=== PATIENT | female | born 1935 | race Caucasian/White ===

== ENCOUNTER 2017-01-14 11:52 | Inpatient (IN) | payer MEDICARE, OTHER ==
[~2017-01-14] VITALS: Ht 167.6 cm; Wt 104.3 kg
[~2017-01-14 11:52] MED LIST: ASPIRIN EC81 MG ORAL; CLOPIDOGREL75 MG ORAL; DIOVAN40 MG ORAL; FUROSEMIDE40 MG ORAL; JANUVIA100 MG ORAL; LEVOTHYROXINE88 MCG ORAL; METFORMIN HCL500 M1 ORAL; METOPROLOL TART25 MG ORAL
[2017-01-14 12:25] VITALS: BP 158/72
[2017-01-14 12:44] LABS: BASOPHILS % (AUTO) 0.8 % (0.0-2.0); LYMPHOCYTES % (AUTO) 16.4 % (20.0-45.0); MEAN CORPUSCULAR HEMOGLOBIN 31.1 PG (27.0-31.0); MEAN CORPUSCULAR HGB CONC 32.7 G/DL (32.0-36.0); MEAN CORPUSCULAR VOLUME 95 FL (80-99); MEAN PLATELET VOLUME 6.9 FL (6.5-10.1); MONOCYTES % (AUTO) 6.5 % (1.0-10.0); NEUTROPHILS % (AUTO) 74.2 % (45.0-75.0); PLATELET COUNT 207 K/UL (150-450); RED BLOOD COUNT 3.64 M/UL (4.20-5.40); RED CELL DISTRIBUTION WIDTH 12.5 % (11.6-14.8); WHITE BLOOD COUNT 10.4 K/UL (4.8-10.8)
--- NOTE | 2017-01-14 12:46 | Diagnostic Imaging Report ---
Indication: Chest pain Technique: One view of the chest Comparison: none Findings: Linear and of atelectasis or scarring are seen in the left midlung and right lung base. Lungs and pleural spaces are otherwise clear. The heart is borderline enlarged. The aorta is elongated tortuous and calcified Impression: No acute process
[2017-01-14 12:58] LABS: TROPONIN I < 0.30 ng/mL (<=0.30)
--- NOTE | 2017-01-14 13:00 | Diagnostic Imaging Report ---
Indication: DIZZY dizziness vertigo Technique: spiral acquisitions obtained through the brain. Angled axial and coronal 5 x 5 mm slices were reconstructed. No IV contrast utilized. Radiation dose was minimized using automated exposure control Total dose length product 1421 mGycm. CTDIvol(s) 70 mGy Comparison: none FINDINGS: No acute hemorrhage or edema. No mass effect or midline shift. There is age-related enlargement of the ventricles and extra axial CSF spaces. There is periventricular deep white matter ischemic change. There is an old lacunar infarct in the right external capsule region. Normal arenas-white differentiation. There is evidence of prior bilateral cataract surgery.. Visualized sinuses are unremarkable. Intact calvarium. IMPRESSION: Chronic and age-related changes. Negative for acute intracranial bleed or mass effect Old right basal ganglia lacunar infarct The CT scanner at [facility] is accredited by the [employer] and the scans are performed using protocols designed to limit radiation exposure to as low as reasonably achievable to attain images of sufficient resolution adequate for diagnostic evaluation
[2017-01-14 13:02] LABS: ALANINE AMINOTRANSFERASE 10 U/L (3-33); ALBUMIN/GLOBULIN RATIO 1.2 (1.0-2.7); ANION GAP 13 (5-15); ASPARTATE AMINO TRANSFERASE 14 U/L (5-40); CALCIUM 9.2 mg/dL (8.6-10.2); CARBON DIOXIDE 24 mEQ/L (20-30); CHLORIDE 105 mEQ/L (98-107); CREATININE 1.1 mg/dL (0.5-0.9); HEMOLYSIS 7; POTASSIUM 3.9 mEQ/L (3.4-4.9); SODIUM 142 mEQ/L (135-145); TOTAL PROTEIN 6.6 g/dL (6.6-8.7)
[2017-01-14 13:13] LABS: CKMB 2.2 ng/mL (< 3.8)
[2017-01-14 13:22] VITALS: BP 136/60
--- NOTE | 2017-01-14 13:54 | Emergency Room Report ---
History of Present Illness General Chief Complaint: Chest Pain Source: Patient, EMS Present Illness HPI 81-year-old female presents ED complaining of chest pain. Per EMS chest pain started approximately 30 minutes prior to arrival at home. Started at rest. She was given aspirin and nitroglycerin. Patient denies any chest pain at this time. She feels dizzy. Patient has history of hypertension and diabetes. Prior stents. Denies smoking or drug use. No other aggravating relieving factors. Denies any other associated symptoms Allergies: Coded Allergies: NO KNOWN ALLERGIES (Unverified Allergy, 07/05/13) Patient History Past Medical History: HTN, OK, CAD Past Surgical History: none Pertinent Family History: none Social History: Denies: smoking, alcohol use, drug use Now: No Immunizations: UTD Reviewed Nursing Documentation: PMH: Agreed, PSxH: Agreed Nursing Documentation-PMH Past Medical History: No History, Except For Hx Cardiac Problems: Yes - 2 STENTS Hx Hypertension: Yes Hx Diabetes: Yes Hx Cancer: No Hx Gastrointestinal Problems: Yes Hx Neurological Problems: No Review of Systems All Other Systems: negative except mentioned in HPI Physical Exam Vital Signs Date Time Temp Pulse Resp B/P (MAP) Pulse Ox O2 Delivery O2 Flow Rate FiO2 01/14/17 11:41 98.4 86 20 158/72 100 Room Air Sp02 EP Interpretation: reviewed, normal General Appearance: no apparent distress, alert, GCS 15, non-toxic Head: normocephalic, atraumatic Eyes: bilateral eye normal inspection, bilateral eye PERRL ENT: hearing grossly normal, normal pharynx, no angioedema, normal voice Neck: full range of motion, supple/symm/no masses Respiratory: chest non-tender, lungs clear, normal breath sounds, speaking full sentences Cardiovascular #1: regular rate, rhythm, no edema Cardiovascular #2: 2+ carotid (R), 2+ carotid (L), 2+ radial (R), 2+ radial (L) , 2+ dorsalis pedis (R), 2+ dorsalis pedis (L) Gastrointestinal: normal bowel sounds, non tender, soft, non-distended, no guarding, no rebound Rectal: deferred Genitourinary: normal inspection, no CVA tenderness Musculoskeletal: back normal, gait/station normal, normal range of motion, non- tender Neurologic: alert, oriented x3, responsive, motor strength/tone normal, sensory intact, speech normal Psychiatric: judgement/insight normal, memory normal, mood/affect normal, no suicidal/homicidal ideation Reflexes: 3+ bicep (R), 3+ bicep (L), 3+ tricep (R), 3+ tricep (L), 3+ knee (R) , 3+ knee (L) Skin: normal color, no rash, warm/dry, well hydrated Lymphatic: no adenopathy Medical Decision Making Diagnostic Impression: Primary Impression: ACS (acute coronary syndrome) ER Course Hospital Course 81-year-old female presents with chest pain from home. No chest pain at this time Differential diagnoses include: OK/unstable angina, contusion, muscle strain, PTX, rib fracture Clinical course Patient placed on stretcher. on quality assurance monitor chassis. After initial history and physical I ordered labs, EKG, chest x-ray, IVFs labs reviewed- no leukocytosis, hemoglobin/hematocrit stable, electrolytes okay , troponins negative EKG-normal sinus rhythm no acute ischemic changes interpreted by me Chest x-ray- unremarkable CT head unremarkable for acute process, old basal ganglier infarct noted Patient remains chest pain-free here. Given significant cardiac history patient should be admitted Case discussed with Dr. Padgett and he agreed to accept the patient to his service for further care and support I. I feel this is a highly complex case requiring extensive working including EKG/Rhythm strip, Xray/CT/US, Blood/urine lab work, repeat exams while in ED, and administration of strong opiates/narcotics for pain control, admission to hospital or close patient follow up. Diagnosis - ACS admitted to telemetry in serious condition Labs Test 01/14/17 12:30 White Blood Count 10.4 K/UL (4.8-10.8) Red Blood Count 3.64 M/UL (4.20-5.40) Hemoglobin 11.3 G/DL (12.0-16.0) Hematocrit 34.7 % (37.0-47.0) Mean Corpuscular Volume 95 FL (80-99) Mean Corpuscular Hemoglobin 31.1 PG (27.0-31.0) Mean Corpuscular Hemoglobin Concent 32.7 G/DL (32.0-36.0) Red Cell Distribution Width 12.5 % (11.6-14.8) Platelet Count 207 K/UL (150-450) Mean Platelet Volume 6.9 FL (6.5-10.1) Neutrophils (%) (Auto) 74.2 % (45.0-75.0) Lymphocytes (%) (Auto) 16.4 % (20.0-45.0) Monocytes (%) (Auto) 6.5 % (1.0-10.0) Eosinophils (%) (Auto) 2.0 % (0.0-3.0) Basophils (%) (Auto) 0.8 % (0.0-2.0) Sodium Level 142 mEQ/L (135-145) Potassium Level 3.9 mEQ/L (3.4-4.9) Chloride Level 105 mEQ/L (98-107) Carbon Dioxide Level 24 mEQ/L (20-30) Anion Gap 13 (5-15) Blood Urea Nitrogen 16 mg/dL (7-23) Creatinine 1.1 mg/dL (0.5-0.9) Estimat Glomerular Filtration Rate mL/min (>60) Glucose Level 161 mg/dL (74-106) Calcium Level 9.2 mg/dL (8.6-10.2) Total Bilirubin 0.4 mg/dL (0.0-1.2) Aspartate Amino Transf (AST/SGOT) 14 U/L (5-40) Alanine Aminotransferase (ALT/SGPT) 10 U/L (3-33) Alkaline Phosphatase 77 U/L (35-104) Total Creatine Kinase 64 U/L (26-140) Creatine Kinase MB 2.2 ng/mL (< 3.8) Creatine Kinase MB Relative Index 3.4 Troponin I < 0.30 ng/mL (<=0.30) Pro-B-Type Natriuretic Peptide 321 pg/mL (0-450) Total Protein 6.6 g/dL (6.6-8.7) Albumin 3.6 g/dL (3.5-5.2) Globulin 3.0 g/dL Albumin/Globulin Ratio 1.2 (1.0-2.7) EKG Diagnostic Results Rate: normal Rhythm: NSR ST Segments: no acute changes ASA given to the pt in ED: No - given by ems Rhythm Strip Diag. Results EP Interpretation: yes Rhythm: NSR, no PVC's, no ectopy Chest X-Ray Diagnostic Results Chest X-Ray Diagnostic Results : Chest X-Ray Ordered: Yes # of Views/Limited/Complete: 1 View Indication: Chest Pain EP Interpretation: Yes Interpretation: no consolidation, no effusion, no pneumothorax, no acute cardiopulmonary disease Impression: No acute disease Electronically Signed by: Electronically signed by Maximiliano Abbasi MD CT/MRI/US Diagnostic Results CT/MRI/US Diagnostic Results : Imaging Test Ordered: CT head Impression no acute process, old basal ganglia infarct Last Vital Signs Date Time Temp Pulse Resp B/P (MAP) Pulse Ox O2 Delivery O2 Flow Rate FiO2 01/14/17 13:29 98.0 60 16 136/60 96 Room Air Status: improved Disposition: ADMITTED INPATIENT Condition: Serious Referrals: NON PHYSICIAN (PCP) MAXIMILIANO ABBASI M.D. Jan 14, 2017 13:54
[2017-01-14 14:00] VITALS: BP 124/70
[2017-01-14 15:25] VITALS: BP 130/65
[2017-01-14] MEDS ORDERED: Nitroglycerin Subl 0.4mg tab SL PRN (18:15)
[2017-01-14 20:00] VITALS: BP 144/71
[2017-01-14 20:53] LABS: TROPONIN I < 0.30 ng/mL (<=0.30)
[2017-01-14 20:56] LABS: LACTATE DEHYDROGENASE 144 U/L (135-230)
[2017-01-14 21:04] LABS: FERRITIN 132 ng/mL (13-150)
[2017-01-14 21:21] LABS: IRON 44 ug/dL (37-145); TOTAL IRON BINDING CAPACITY 221 ug/dL (250-400)
[2017-01-14 21:22] LABS: ANISOCYTOSIS 1+; BAND NEUTROPHILS % (MANUAL) 0 % (0-8); BASOPHILS % (MANUAL) 0 % (0-2); EOSINOPHILS % (MANUAL) 3 % (0-3); HYPOCHROMASIA 1+; LYMPHOCYTES % (MANUAL) 27 % (20-45); NEUTROPHILS % (MANUAL) 65 % (45-75); PLATELET ESTIMATE ADEQUATE; PLATELET MORPHOLOGY NORMAL; TOTAL CELLS COUNTED 100
[2017-01-14 21:23] LABS: PATH BLOOD SMEAR/OMC SENT TO PATHOLOGIST
[2017-01-15] VITALS (7 sets, daily range): BP systolic 130–148; BP diastolic 50–82
[2017-01-15] MEDS: metFORMIN 500mg tab ORAL SCH ×3 (06:23→16:31)
[2017-01-15 06:34] LABS: TROPONIN I < 0.30 ng/mL (<=0.30)
--- NOTE | 2017-01-15 07:39 | Cardiology Progress Note ---
Assessment/Plan Assessment/Plan The patient is seen and examined, full consult note is dictated. Objective Last 24 Hour Vital Signs Date Time Temp Pulse Resp B/P (MAP) Pulse Ox O2 Delivery O2 Flow Rate FiO2 01/15/17 04:05 96.6 56 18 140/74 96 Room Air 01/15/17 04:00 59 01/15/17 00:00 97.3 66 18 133/69 94 Room Air 01/15/17 00:00 60 01/14/17 20:00 64 01/14/17 20:00 97.0 65 18 144/71 95 Room Air 01/14/17 16:00 67 01/14/17 15:25 96.7 58 18 130/65 96 Room Air 01/14/17 14:00 97.2 64 16 124/70 94 Room Air 01/14/17 13:29 98.0 60 16 136/60 96 Room Air 01/14/17 13:22 98.0 60 16 136/60 96 Room Air 01/14/17 12:25 98.4 20 158/72 100 Room Air 01/14/17 12:25 86 20 Room Air 01/14/17 11:41 98.4 86 20 158/72 100 Room Air Laboratory Tests Test 01/14/17 12:30 01/14/17 20:15 01/15/17 05:50 White Blood Count 10.4 K/UL (4.8-10.8) Red Blood Count 3.64 M/UL (4.20-5.40) L Hemoglobin 11.3 G/DL (12.0-16.0) L Hematocrit 34.7 % (37.0-47.0) L Mean Corpuscular Volume 95 FL (80-99) Mean Corpuscular Hemoglobin 31.1 PG (27.0-31.0) H Mean Corpuscular Hemoglobin Concent 32.7 G/DL (32.0-36.0) Red Cell Distribution Width 12.5 % (11.6-14.8) Platelet Count 207 K/UL (150-450) Mean Platelet Volume 6.9 FL (6.5-10.1) Neutrophils (%) (Auto) 74.2 % (45.0-75.0) Lymphocytes (%) (Auto) 16.4 % (20.0-45.0) L Monocytes (%) (Auto) 6.5 % (1.0-10.0) Eosinophils (%) (Auto) 2.0 % (0.0-3.0) Basophils (%) (Auto) 0.8 % (0.0-2.0) Differential Total Cells Counted 100 Neutrophils % (Manual) 65 % (45-75) Lymphocytes % (Manual) 27 % (20-45) Monocytes % (Manual) 5 % (1-10) Eosinophils % (Manual) 3 % (0-3) Basophils % (Manual) 0 % (0-2) Band Neutrophils 0 % (0-8) Platelet Estimate Adequate Platelet Morphology Normal Hypochromasia 1+ Anisocytosis 1+ Sodium Level 142 mEQ/L (135-145) Potassium Level 3.9 mEQ/L (3.4-4.9) Chloride Level 105 mEQ/L (98-107) Carbon Dioxide Level 24 mEQ/L (20-30) Anion Gap 13 (5-15) Blood Urea Nitrogen 16 mg/dL (7-23) Creatinine 1.1 mg/dL (0.5-0.9) H Estimat Glomerular Filtration Rate mL/min (>60) Glucose Level 161 mg/dL (74-106) H Calcium Level 9.2 mg/dL (8.6-10.2) Total Bilirubin 0.4 mg/dL (0.0-1.2) Aspartate Amino Transf (AST/SGOT) 14 U/L (5-40) Alanine Aminotransferase (ALT/SGPT) 10 U/L (3-33) Alkaline Phosphatase 77 U/L (35-104) Total Creatine Kinase 64 U/L (26-140) Creatine Kinase MB 2.2 ng/mL (< 3.8) Creatine Kinase MB Relative Index 3.4 Troponin I < 0.30 ng/mL (<=0.30) < 0.30 ng/mL (<=0.30) < 0.30 ng/mL (<=0.30) Pro-B-Type Natriuretic Peptide 321 pg/mL (0-450) Total Protein 6.6 g/dL (6.6-8.7) Albumin 3.6 g/dL (3.5-5.2) Globulin 3.0 g/dL Albumin/Globulin Ratio 1.2 (1.0-2.7) Reticulocyte Count 0.8 % (0.0-2.0) Iron Level 44 ug/dL (37-145) Total Iron Binding Capacity 221 ug/dL (250-400) L Percent Iron Saturation 20 % (15-50) Unsaturated Iron Binding 177 ug/dL (112-346) Ferritin 132 ng/mL (13-150) Lactate Dehydrogenase 144 U/L (135-230) Vitamin B12 Level 329 pg/mL (211-946) Folate Pending Homocystine Pending Thyroid Stimulating Hormone (TSH) 4.590 uIU/mL (0.300-4.500) LEVI DILLARD Jan 15, 2017 07:39
--- NOTE | 2017-01-15 09:46 | Consultation ---
DATE OF CONSULTATION: HEMATOLOGY/ONCOLOGY CONSULTATION CONSULTING PHYSICIAN: Mk Johnson M.D. REQUESTING PHYSICIAN: Benito Padgett M.D. REASON FOR CONSULTATION: Evaluation of anemia. IDENTIFICATION DATA: Dear Dr. Padgett, The patient is a pleasant 81-year-old female, who has never been to [facility] before. She has a past medical history significant for hypertension, HI, and CAD, who presents to the ER with chest pain per EMS. Chest pain started about 30 minutes prior to arrival p.r.n. rest, was given aspirin as well as nitroglycerin. The patient denies any chest pain, feels dizzy, history of hypertension and diabetes mellitus as well. Denies any or drug use. She was noted to have anemia. So, Hematology service was consulted for evaluation and treatment. PAST MEDICAL HISTORY: Hypertension, HI, and CAD. PAST SURGICAL HISTORY: None noted. SOCIAL HISTORY: No alcohol, tobacco, or illicit drug use. FAMILY HISTORY: Noncontributory. Review Of Systems: Constitutional: No fever, chills, or night sweats. Skin: No rashes, lumps, or itching. HEENT: No headache, hearing or vision changes. Breasts: No lumps, pain, or discharge. Pulmonary: No cough, sputum, or shortness of breath. Gastrointestinal: No nausea, vomiting, or diarrhea. Genitourinary: No dysuria, frequency, or urgency. Musculoskeletal: No joint swelling, muscle pain, or trauma. PHYSICAL EXAMINATION: GENERAL: The patient is in no acute distress. Vital Signs: Temperature 98 degrees Fahrenheit, pulse rate of 82, respiratory rate 12, and blood pressure 132/72, and pulse oximetry is 100% on room air. PULMONARY: Decreased breath sounds. CARDIOVASCULAR: Regular rate. No S3 or S4. ABDOMEN: Soft, nontender, and nondistended. EXTREMITIES: There is 1+ to 2+ edema. Laboratory Data: WBC 10.4, hemoglobin 11.3, hematocrit 35, and platelet count 207,000. IMAGING: Chest x-ray shows no acute process. Head CT shows chronic age-related changes and negative for acute bleed. ASSESSMENT AND PLAN: 1. Anemia secondary to chronic disease. Continue to closely monitor. 2. Decreased hemoglobin and hematocrit. Rule out gastrointestinal bleed. Occult blood is pending. 3. Chronic age-related changes. No acute intracranial bleed noted. 4. Hypertension. Monitor BP. 5. Myocardial infarction. Cardiology service is on board. 6. . Mk Johnson M.D. DR: JEET JOB#: [id number] CC:
[2017-01-15] MEDS: Aspirin Baby 81mg ORAL SCH (10:11)
--- NOTE | 2017-01-15 15:55 | General Progress Note ---
Assessment/Plan Assessment/Plan ASSESSMENT AND PLAN: 1. Anemia secondary to chronic disease, mild. Continue to closely monitor. --> TIBC is low, ferritin wnl, no iron deficiency 2. Decreased hemoglobin and hematocrit. Rule out gastrointestinal bleed. Occult blood is pending. 3. Hypertension. Monitor BP. 4. Chest pain, cardiology on board Subjective Constitutional: Reports: no symptoms HEENT: Reports: no symptoms Respiratory: Reports: no symptoms Gastrointestinal/Abdominal: Reports: no symptoms Genitourinary: Reports: no symptoms Neurologic/Psychiatric: Reports: no symptoms Endocrine: Reports: no symptoms Hematologic/Lymphatic: Reports: anemia Allergies: Coded Allergies: NO KNOWN ALLERGIES (Unverified Allergy, Unknown, 01/14/17) Subjective NAD Objective Last 24 Hour Vital Signs Date Time Temp Pulse Resp B/P (MAP) Pulse Ox O2 Delivery O2 Flow Rate FiO2 01/15/17 12:00 97.0 62 22 140/70 94 Room Air 01/15/17 11:26 66 01/15/17 10:11 148/50 01/15/17 08:07 70 01/15/17 08:00 97.0 74 20 148/50 95 Room Air 01/15/17 04:05 96.6 56 18 140/74 96 Room Air 01/15/17 04:00 59 01/15/17 00:00 97.3 66 18 133/69 94 Room Air 01/15/17 00:00 60 01/14/17 20:00 64 01/14/17 20:00 97.0 65 18 144/71 95 Room Air 01/14/17 16:00 67 Laboratory Tests 01/14/17 20:15: Reticulocyte Count 0.8, Iron Level 44, Total Iron Binding Capacity 221L, Percent Iron Saturation 20, Unsaturated Iron Binding 177, Ferritin 132, Lactate Dehydrogenase 144, Troponin I < 0.30, Vitamin B12 Level 329, Folate [Pending], Homocystine [Pending], Thyroid Stimulating Hormone (TSH) 4.590H 01/15/17 05:50: Troponin I < 0.30 Height (Feet): 5 Height (Inches): 6.00 Weight (Pounds): 230 General Appearance: no apparent distress EENT: normal ENT inspection Neck: normal alignment Cardiovascular: normal rate Respiratory/Chest: no accessory muscle use Extremities: normal range of motion Edema: trace edema KleynbergMk L. Jan 15, 2017 15:55
--- NOTE | 2017-01-15 16:17 | Cardiology Report ---
APPROVED REPORT EXAM: Two-dimensional and M-mode echocardiogram with Doppler and color Doppler. INDICATION Chest Pain Technically difficult study due to poor acoustical windows. M-mode measurements of left ventricle not obtainable due to cardiac position (angle) Normal left ventricular chamber size, systolic function and wall motion to extent visualized. Left ventricular ejection fraction estimated to be 55-60 %. Study quality precludes accurate assessment of regional wall motion. Moderate left ventricular hypertrophy by 2-D. No evidence of pericardial effusion. Left atrial size at upper limits of normal. Right cardiac chamber sizes are within normal limits. Focal aortic valve sclerosis with adequate cusp excursion. Thickened mitral valve leaflets with normal excursion. Moderate mitral annulus and aortic root calcification. Pulmonic valve not well visualized. Normal tricuspid valve structure. IVC at normal size with physiologic collapse. A color flow and spectral Doppler study was performed and revealed: Mild aortic regurgitation. Trace mitral regurgitation. Mitral diastolic velocities suggest reduced left ventricular relaxation c/w mild LV diastolic dysfunction (Grade I). Trace tricuspid regurgitation. Tricuspid systolic velocities suggests peak right ventricular systolic pressure of 16 mmHg.
--- NOTE | 2017-01-15 16:33 | Cardiology Report ---
APPROVED REPORT EKG Measurement Heart [id number] Normal sinus rhythm Low voltage QRS Inferior infarct, age undetermined Abnormal ECG
--- NOTE | 2017-01-15 16:36 | Cardiology Report ---
APPROVED REPORT EKG Measurement Heart [id number] [id number] Normal sinus rhythm Low voltage QRS Possible Inferior infarct, age undetermined Abnormal ECG
--- NOTE | 2017-01-15 19:32 | Consultation ---
DATE OF CONSULTATION: 01/15/2017 CARDIOLOGY CONSULTATION REFERRING PHYSICIAN: Benito Padgett M.D. REASON FOR CONSULTATION: Management of chest pain. History Of Present Illness: The patient is a very pleasant 81-year-old female, who presents to the hospital actually with complaints of vertigo and gait imbalance that has been going on for some time. As this condition got worse and the patient had fear of walking and had been using walking assistive device such as a cane to maintain stability and the relation of these symptoms with first heart attack that occurred in 2009 she decided to come to the hospital. She also states that she feels that her heart is inside water most of the time and this sensation had been going on for some time as well. She did not have any acute onset of chest pressure or pain or shortness of breath at this time. Upon admission in the emergency department, blood pressure was 158/72 mmHg. Her 12-lead electrocardiogram showed no ischemic features, although, there is a evidence of old inferior wall infarct, possibly old lateral wall infarct. She claims that she has two stents placed in her coronary arteries at [place] in 2009. She has been taking only aspirin daily. PAST MEDICAL HISTORY: 1. Hypertension. 2. History of coronary artery disease. 3. History of myocardial infarction. 4. History of percutaneous coronary intervention. 5. History of diabetes mellitus. 6. History of gastrointestinal problems. Past Surgical History: Percutaneous coronary intervention in 2009 in the hospital in [place]. Medications: List of medication, aspirin 81 mg p.o. daily, furosemide 40 mg p.o. daily, levothyroxine 88 mcg p.o. daily, metformin 500 mg twice daily, metoprolol 25 mg twice daily, Januvia 100 mg p.o. daily, and valsartan 40 mg p.o. daily. There is also mention of clopidogrel 75 mg p.o. daily, which the patient denies taking another anti-platelet medication. SOCIAL HISTORY: Denies any tobacco, alcohol, or illicit drug use. Family History: No premature coronary artery disease in first-degree relatives. Review Of Systems: Complains of the vertigo sensation, dizziness and lightheadedness. Denies any headaches.Constitutional: Denies any fever, chills, night sweats, or weight loss. Cardiovascular: Complaints of feeling of chest being in the water, but no acute onset of chest pain or chest pressure. Denies any shortness of breath with activities. Denies any PND, orthopnea, leg swelling, loss of consciousness or palpitation. Pulmonary: Denies any cough, hemoptysis, or wheezing. Gastrointestinal: Denies any nausea, vomiting, diarrhea, constipation, abdominal pain, or GI bleed. Genitourinary: Denies any hematuria, dysuria, or incontinence. Neurology: Denies any motor dysfunction, sensory deficit, or altered speech. PHYSICAL EXAMINATION: General: The patient is a very pleasant 81-year-old lady in no apparent respiratory distress. Alert and oriented x4. Vital Signs: Blood pressure was 158/72, respirations of 20, pulse of 86, temperature 98.4 degrees Fahrenheit, and O2 saturation 100%. HEENT: Atraumatic and normocephalic. Anicteric. Pupils are equal, round, and reactive to light and accommodation. Extraocular muscles are intact. Neck: JVP less than 5 centimeter. No carotid bruit. Carotid upstrokes 2+ bilaterally. Cardiovascular: Normal S1 and S2. Regular rate and rhythm. No murmurs, gallops, or rubs. PMI is at fourth intercostal space in the midclavicular line. LUNGS: Clear to auscultation bilaterally. Abdomen: Soft, nontender, and nondistended. No hepatosplenomegaly. Positive bowel sounds. EXTREMITIES: No evidence of edema, clubbing, or cyanosis. Laboratory And Diagnostic Data: Head CT showed chronic and age-related changes. Negative for acute intracranial bleed or mass effect. Old right basal ganglia lacunar infarct. Chest x-ray shows no acute process. Laboratory finding shows sodium 142, potassium is 3.9, chloride 105, bicarbonate 24, BUN of 16, creatinine 1.1, and glucose is 161. Calcium is 9.2. Troponin I x3 negative. ProBNP was 321. WBC 10.4, hemoglobin 11.3, hematocrit 34.7, and platelet count is 207,000. A 12-lead electrocardiogram shows sinus rhythm with presence of Q-waves in lead III and aVF suggestive of old inferior wall infarct and also Q-waves in lead I and V5 and V6 suggestive of old lateral wall infarct. Assessment And Plan: The patient is a very pleasant 81-year-old lady who is seen in Cardiology consultation at the request of Dr. Padgett. 1. This is most likely noncardiac chest pain, however, the patient has history of coronary artery disease status post stent placement in 2009. A 12-lead electrocardiogram does not show any evidence of acute ischemia. Given the patient's the lingering symptoms of chest discomfort, we will proceed with obtaining pharmacological nuclear stress myocardial perfusion imaging study, which will be ordered for tomorrow. A 2D echocardiography for assessment of the systolic function and wall motion abnormalities also be ordered. As mentioned above, a 12-lead electrocardiogram shows evidence of old inferior and lateral wall infarct. The patient will be continue on aspirin only. There is no need for dual oral anti-platelet therapy as the stent placement was in 2009. She will be continued on metoprolol for double product control. Diovan will also be continued for management of hypertension. 2. History of vertigo. I would recommend Neurology consultation to assess this condition. 3. Diabetes mellitus. The patient will be continued on aspirin and statins. 4. History of hypertension. The patient will continued on combination of valsartan and metoprolol. I would like to thank, Dr. Padgett, for involving me in the care of this most pleasant patient. Darrell Ferris M.D. DR: GERONIMO JOB#: [id number] CC:
[2017-01-16] VITALS (7 sets, daily range): BP systolic 132–183; BP diastolic 74–89
[2017-01-16] MEDS: metFORMIN 500mg tab ORAL SCH ×3 (06:34→17:28)
[2017-01-16 07:16] LABS: CHOLESTEROL/HDL RATIO 5.6 (3.3-4.4)
[2017-01-16 08:14] LABS: HOMOCYSTINE QUANT 12.7 umol/L (0.0-15.0)
--- NOTE | 2017-01-16 08:32 | History and Physical Report ---
DATE OF ADMISSION: 01/14/2017 History Of Present Illness: The patient comes here and is admitted for chest pain, rule out acute coronary syndrome. The chest pain has been going on for one day. It is intermittent. The patient has had a left-sided headache and fatigue. Denies diaphoresis. Denies palpitations. Denies shortness of breath. Denies wheezing. Denies cough. Denies nausea, vomiting, or diarrhea. The patient has a high risk of coronary artery disease, has all the risk factors for heart attack. He denies orthopnea or leg edema. Past Medical History: Significant for CAD, status post GA, hypertension, hypothyroidism, NIDDM, hypertension, degenerative joint disease, and gallstones. Past Surgical History: Two stents placed for the coronary artery disease and cholecystectomy. Medications: Plavix, aspirin, Lasix, Levoxyl, metformin, metoprolol, Januvia, and Losartan. ALLERGIES: No known allergies. Social History: As mentioned, denies history of smoking, denies history of drug or alcohol abuse. Family History: He does have a history of heart disease, diabetes, and hypertension. Review Of Systems: HEENT: The patient states he had headache. Respiratory: Denies shortness of breath. Denies cough. Cardiovascular: Reports chest pain, which is intermittent for one day with no radiation. Gastrointestinal: Denies nausea, vomiting, or diarrhea. Extremities: Denies pain. Central Nervous System: Denies change in vision or speech pattern. PHYSICAL EXAMINATION: Vital Signs: Temperature 97.3 degrees, pulse is 66, and blood pressure 133/69. HEENT: PERRLA. NECK: Supple. No lymphadenopathy. CHEST: Clear to auscultation. Gastrointestinal: Soft, nontender, and nondistended. No organomegaly. EXTREMITIES: No edema. Moves all four extremities. Neurologic: Reflexes are equal on both sides. Moves all four extremities. Laboratory and Diagnostic Data: EKG: No significant findings. is negative. Labs showed , hemoglobin 11.3, and platelets 207,000. Assessment And Plan: Chest pain. The patient has a high risk of having myocardial infarction. Dr. Ferris has been consulted for the cardiac workup and to rule out acute coronary syndrome and Dr. Brown has also been consulted for possible dehydration. The patient does have signs of severe dehydration. Ali Mazin Padgett DR: JOSH JOB#: [id number] CC:
[2017-01-16] MEDS: Aspirin Baby 81mg ORAL SCH (09:31)
[2017-01-16] MEDS ORDERED: Adenosine Inj IVP ONE (13:00)
--- NOTE | 2017-01-16 13:58 | General Progress Note ---
Assessment/Plan Problem List: (1) ACS (acute coronary syndrome) ICD Codes: I24.9 - Acute ischemic heart disease, unspecified SNOMED: 848802016 Status: progressing Assessment/Plan afebrile vitals stable acs no chest pain today high risk for TX cardiac w/u per torch straightener neg trop Subjective ROS Limited/Unobtainable: Yes Constitutional: Reports: no symptoms Allergies: Coded Allergies: NO KNOWN ALLERGIES (Unverified Allergy, Unknown, 01/14/17) Objective Last 24 Hour Vital Signs Date Time Temp Pulse Resp B/P (MAP) Pulse Ox O2 Delivery O2 Flow Rate FiO2 01/16/17 12:00 63 01/16/17 09:30 144/89 01/16/17 08:00 64 01/16/17 08:00 98.2 76 22 144/89 97 Room Air 01/16/17 04:06 98.6 66 19 136/75 94 Room Air 01/16/17 04:00 60 01/16/17 00:00 63 01/15/17 23:59 98.1 73 18 141/82 98 Room Air 01/15/17 20:21 98.6 69 19 135/69 97 Room Air 01/15/17 20:00 68 01/15/17 16:00 97.9 66 20 130/80 94 Room Air 01/15/17 15:53 60 Laboratory Tests 01/16/17 06:20: Triglycerides Level 166H, Cholesterol Level 191, LDL Cholesterol 124H, HDL Cholesterol 34, Cholesterol/HDL Ratio 5.6H Height (Feet): 5 Height (Inches): 6.00 Weight (Pounds): 230 EENT: PERRL/EOMI Neck: supple Cardiovascular: normal rate Respiratory/Chest: lungs clear Abdomen: soft Benito Padgett MD Jan 16, 2017 13:58
--- NOTE | 2017-01-16 16:10 | Diagnostic Imaging Report ---
Indications: Chest pain Technique: Single day single isotope protocol utilized. Initially, resting images obtained using IV administration 11 millicuries 99M technetium Myoview. Subsequently, patient underwent adenosine stress testing. See cardiology report for details. During adenosine infusion, IV administration an 8.5 mCi 99 M technetium Myoview. SPECT and planar images obtained. SPECT images gated to 8 phases of the cardiac cycle were also obtained, and reformatted into cine images for evaluation of ejection fraction. Comparison: None Findings: Per cardiology report, patient experienced shortness of breath. Per cardiology report, resting EKG demonstrates normal sinus rhythm with premature atrial contractions. Nonspecific T-wave changes were recorded in leads V4 through V6. Imaging demonstrates a large perfusion defect involving the inferolateral wall. This is not seen to reperfuse on the resting images. Calculated post stress ejection fraction 50% . There is decreased wall motion in the inferolateral wall Impression: Ischemic clinical response to pharmacologic stress, per cardiology report Nonischemic electrocardiographic response to pharmacologic stress, per cardiology report Large fixed inferolateral perfusion defect, consistent with large infarct. No evidence of ischemia, at level of stress achieved. Calculated post stress ejection fraction 50%. Evidence of inferolateral hypokinesis
--- NOTE | 2017-01-16 16:31 | General Progress Note ---
Assessment/Plan Assessment/Plan ASSESSMENT AND PLAN: 1. Anemia secondary to chronic disease, mild. Continue to closely monitor. --> TIBC is low, ferritin wnl, no iron deficiency --> will recheck cbc to make sure no drop in HH 2. Decreased hemoglobin and hematocrit. Rule out gastrointestinal bleed. Occult blood is pending. 3. Hypertension. Monitor BP. 4. Chest pain, cardiology on board Subjective Constitutional: Reports: no symptoms HEENT: Reports: no symptoms Cardiovascular: Reports: no symptoms Respiratory: Reports: no symptoms Gastrointestinal/Abdominal: Reports: no symptoms Genitourinary: Reports: no symptoms Neurologic/Psychiatric: Reports: no symptoms Hematologic/Lymphatic: Reports: anemia Allergies: Coded Allergies: NO KNOWN ALLERGIES (Unverified Allergy, Unknown, 01/14/17) Subjective no f/c, no complaints of pain Objective Last 24 Hour Vital Signs Date Time Temp Pulse Resp B/P (MAP) Pulse Ox O2 Delivery O2 Flow Rate FiO2 01/16/17 12:00 98.1 64 21 132/81 97 Room Air 01/16/17 12:00 63 01/16/17 09:30 144/89 01/16/17 08:00 64 01/16/17 08:00 98.2 76 22 144/89 97 Room Air 01/16/17 04:06 98.6 66 19 136/75 94 Room Air 01/16/17 04:00 60 01/16/17 00:00 63 01/15/17 23:59 98.1 73 18 141/82 98 Room Air 01/15/17 20:21 98.6 69 19 135/69 97 Room Air 01/15/17 20:00 68 Laboratory Tests 01/16/17 06:20: Triglycerides Level 166H, Cholesterol Level 191, LDL Cholesterol 124H, HDL Cholesterol 34, Cholesterol/HDL Ratio 5.6H Height (Feet): 5 Height (Inches): 6.00 Weight (Pounds): 230 General Appearance: WD/WN EENT: normal ENT inspection Neck: normal alignment Extremities: normal inspection Edema: no edema noted Pedal (L), no edema noted Pedal (R) Neurologic: psychological operations specialist II-XII grossly normal Skin: warm/dry Mk Johnson Jan 16, 2017 16:31
[2017-01-16] MEDS ORDERED: Milk of Magnesia 30ml Ud ORAL PRN (17:45)
[2017-01-16] MEDS ORDERED: Bisacodyl EC 5mg tab ORAL PRN (17:45)
[2017-01-16 18:01] LABS: BASOPHILS % (AUTO) 0.7 % (0.0-2.0); EOSINOPHILS % (AUTO) 2.6 % (0.0-3.0); LYMPHOCYTES % (AUTO) 16.5 % (20.0-45.0); MEAN CORPUSCULAR HEMOGLOBIN 32.2 PG (27.0-31.0); MEAN CORPUSCULAR HGB CONC 34.5 G/DL (32.0-36.0); MEAN CORPUSCULAR VOLUME 93 FL (80-99); MEAN PLATELET VOLUME 6.5 FL (6.5-10.1); MONOCYTES % (AUTO) 6.7 % (1.0-10.0); NEUTROPHILS % (AUTO) 73.4 % (45.0-75.0); PLATELET COUNT 202 K/UL (150-450); RED CELL DISTRIBUTION WIDTH 12.6 % (11.6-14.8); WHITE BLOOD COUNT 12.2 K/UL (4.8-10.8)
[2017-01-16 18:24] LABS: ALANINE AMINOTRANSFERASE 10 U/L (3-33); ALBUMIN/GLOBULIN RATIO 1.1 (1.0-2.7); ANION GAP 11 (5-15); ASPARTATE AMINO TRANSFERASE 14 U/L (5-40); CALCIUM 9.6 mg/dL (8.6-10.2); CARBON DIOXIDE 27 mEQ/L (20-30); CHLORIDE 105 mEQ/L (98-107); CREATININE 1.3 mg/dL (0.5-0.9); HEMOLYSIS 0; POTASSIUM 4.1 mEQ/L (3.4-4.9); SODIUM 143 mEQ/L (135-145)
[2017-01-16] MEDS: Docusate 100mg cap ORAL SCH (18:41)
[2017-01-17 03:58] VITALS: BP 130/69
[2017-01-17] MEDS: metFORMIN 500mg tab ORAL SCH ×3 (06:06→17:18)
[2017-01-17 08:00] VITALS: BP 143/77
[2017-01-17] MEDS: Docusate 100mg cap ORAL SCH ×4 (09:00→09:15)
[2017-01-17] MEDS: Aspirin Baby 81mg ORAL SCH (09:11)
[2017-01-17 10:49] LABS: OTHERS PATHOLOGIST COMMENT
[2017-01-17 12:00] VITALS: BP 154/72
--- NOTE | 2017-01-17 13:43 | General Progress Note ---
Assessment/Plan Assessment/Plan ASSESSMENT AND PLAN: 1. Anemia secondary to chronic disease, mild. Continue to closely monitor. --> TIBC is low, ferritin wnl, no iron deficiency --> will recheck cbc to make sure no drop in HH -> resolved 2. Leukocytosis, mild, monitor count. 3. Hypertension. Monitor BP. 4. Chest pain, cardiology on board Subjective Constitutional: Reports: no symptoms HEENT: Reports: no symptoms Cardiovascular: Reports: no symptoms Respiratory: Reports: no symptoms Gastrointestinal/Abdominal: Reports: no symptoms Genitourinary: Reports: no symptoms Neurologic/Psychiatric: Reports: no symptoms Endocrine: Reports: no symptoms Hematologic/Lymphatic: Reports: anemia Allergies: Coded Allergies: NO KNOWN ALLERGIES (Unverified Allergy, Unknown, 01/14/17) Subjective no f/c, no complaints of pain Objective Last 24 Hour Vital Signs Date Time Temp Pulse Resp B/P (MAP) Pulse Ox O2 Delivery O2 Flow Rate FiO2 01/17/17 12:00 97.0 70 20 154/72 95 Room Air 01/17/17 09:11 143/77 01/17/17 08:00 68 01/17/17 08:00 97.5 76 21 143/77 96 Room Air 01/17/17 04:00 62 01/17/17 03:58 98.8 76 18 130/69 95 Room Air 01/17/17 00:00 71 01/16/17 23:54 98.3 73 19 149/74 98 Room Air 01/16/17 20:23 69 157/75 01/16/17 20:10 98.6 71 18 183/78 96 Room Air 01/16/17 20:00 69 01/16/17 16:00 97.9 78 20 145/84 97 Room Air 01/16/17 16:00 64 Intake and Output 01/17/17 01/18/17 19:00 07:00 # Bowel Movements 1 Laboratory Tests 01/16/17 17:40: White Blood Count 12.2H, Red Blood Count 4.00L, Hemoglobin 12.9, Hematocrit 37.3 , Mean Corpuscular Volume 93, Mean Corpuscular Hemoglobin 32.2H, Mean Corpuscular Hemoglobin Concent 34.5, Red Cell Distribution Width 12.6, Platelet Count 202, Mean Platelet Volume 6.5, Neutrophils (%) (Auto) 73.4, Lymphocytes (% ) (Auto) 16.5L, Monocytes (%) (Auto) 6.7, Eosinophils (%) (Auto) 2.6, Basophils (%) (Auto) 0.7, Sodium Level 143, Potassium Level 4.1, Chloride Level 105, Carbon Dioxide Level 27, Anion Gap 11, Blood Urea Nitrogen 15, Creatinine 1.3H, Estimat Glomerular Filtration Rate , Glucose Level 132H, Calcium Level 9.6, Total Bilirubin 0.3, Aspartate Amino Transf (AST/SGOT) 14, Alanine Aminotransferase (ALT/SGPT) 10, Alkaline Phosphatase 86, Total Protein 7.0, Albumin 3.8, Globulin 3.2, Albumin/Globulin Ratio 1.1 01/17/17 09:14: Stool Occult Blood Negative Height (Feet): 5 Height (Inches): 6.00 Weight (Pounds): 230 General Appearance: no apparent distress EENT: normal ENT inspection Neck: normal inspection Cardiovascular: no gallop/murmur Extremities: non-tender Edema: no edema noted Pedal (L), no edema noted Pedal (R) Mk Johnson Jan 17, 2017 13:43
[2017-01-17 16:00] VITALS: BP 140/86
--- NOTE | 2017-01-17 17:35 | Infectious Diseases Prog Note ---
Assessment/Plan Problems: (1) Leukocytosis Assessment & Plan: rule out sepsis or UTI, will send blood culture and UA, monitor WBC (2) ACS (acute coronary syndrome) Assessment & Plan: rule out MD, work up in progress, cardiology is following Subjective Allergies: Coded Allergies: NO KNOWN ALLERGIES (Unverified Allergy, Unknown, 01/14/17) Objective Vital Signs Last 24 Hour Vital Signs Date Time Temp Pulse Resp B/P (MAP) Pulse Ox O2 Delivery O2 Flow Rate FiO2 01/17/17 16:00 97.0 70 20 140/86 97 Room Air 01/17/17 12:00 71 01/17/17 12:00 97.0 70 20 154/72 95 Room Air 01/17/17 09:11 143/77 01/17/17 08:00 68 01/17/17 08:00 97.5 76 21 143/77 96 Room Air 01/17/17 04:00 62 01/17/17 03:58 98.8 76 18 130/69 95 Room Air 01/17/17 00:00 71 01/16/17 23:54 98.3 73 19 149/74 98 Room Air 01/16/17 20:23 69 157/75 01/16/17 20:10 98.6 71 18 183/78 96 Room Air 01/16/17 20:00 69 Height (Feet): 5 Height (Inches): 6.00 Weight (Pounds): 230 Laboratory Tests Test 01/16/17 17:40 01/17/17 09:14 White Blood Count 12.2 K/UL (4.8-10.8) H Red Blood Count 4.00 M/UL (4.20-5.40) L Hemoglobin 12.9 G/DL (12.0-16.0) Hematocrit 37.3 % (37.0-47.0) Mean Corpuscular Volume 93 FL (80-99) Mean Corpuscular Hemoglobin 32.2 PG (27.0-31.0) H Mean Corpuscular Hemoglobin Concent 34.5 G/DL (32.0-36.0) Red Cell Distribution Width 12.6 % (11.6-14.8) Platelet Count 202 K/UL (150-450) Mean Platelet Volume 6.5 FL (6.5-10.1) Neutrophils (%) (Auto) 73.4 % (45.0-75.0) Lymphocytes (%) (Auto) 16.5 % (20.0-45.0) L Monocytes (%) (Auto) 6.7 % (1.0-10.0) Eosinophils (%) (Auto) 2.6 % (0.0-3.0) Basophils (%) (Auto) 0.7 % (0.0-2.0) Sodium Level 143 mEQ/L (135-145) Potassium Level 4.1 mEQ/L (3.4-4.9) Chloride Level 105 mEQ/L (98-107) Carbon Dioxide Level 27 mEQ/L (20-30) Anion Gap 11 (5-15) Blood Urea Nitrogen 15 mg/dL (7-23) Creatinine 1.3 mg/dL (0.5-0.9) H Estimat Glomerular Filtration Rate mL/min (>60) Glucose Level 132 mg/dL (74-106) H Calcium Level 9.6 mg/dL (8.6-10.2) Total Bilirubin 0.3 mg/dL (0.0-1.2) Aspartate Amino Transf (AST/SGOT) 14 U/L (5-40) Alanine Aminotransferase (ALT/SGPT) 10 U/L (3-33) Alkaline Phosphatase 86 U/L (35-104) Total Protein 7.0 g/dL (6.6-8.7) Albumin 3.8 g/dL (3.5-5.2) Globulin 3.2 g/dL Albumin/Globulin Ratio 1.1 (1.0-2.7) Stool Occult Blood Negative (NEGATIVE) Current Medications Medications (Trade) Dose Ordered Sig/Camila Route PRN Reason Start Time Stop Time Status Last Admin Dose Admin Acetaminophen (Tylenol) 650 mg Q4H PRN ORAL Mild Pain/Temp > 100.5 01/14/17 14:30 02/13/17 14:29 Aspirin (ASA) 81 mg DAILY ORAL 01/15/17 09:00 02/14/17 08:59 01/17/17 09:11 Atorvastatin Calcium (Lipitor) 40 mg BEDTIME ORAL 01/15/17 21:00 02/14/17 20:59 01/16/17 21:27 Bisacodyl (Dulcolax) 10 mg DAILYPRN PRN ORAL Constipation 01/16/17 17:45 10/21/17 17:44 01/16/17 18:41 Docusate Sodium (Colace) 100 mg TWICE A DAY ORAL 01/16/17 18:00 02/15/17 17:59 01/16/17 18:41 Irbesartan (Avapro) 150 mg DAILY ORAL 01/18/17 09:00 02/17/17 08:59 Levothyroxine Sodium (Synthroid) 88 mcg DAILY@0630 ORAL 01/15/17 06:30 02/14/17 06:29 01/17/17 06:07 Magnesium Hydroxide (Mom) 30 ml Q6H PRN ORAL Constipation 01/16/17 17:45 02/15/17 17:44 Metformin HCl (Glucophage) 500 mg TIAC ORAL 01/15/17 06:30 02/14/17 06:29 01/17/17 17:18 Nitroglycerin (Ntg) 0.4 mg Q5M PRN SL Prn Chest Pain 01/14/17 18:15 02/13/17 18:14 Sitagliptin Phosphate (Januvia) 100 mg ACBREAKFAST ORAL 01/15/17 06:30 02/14/17 06:29 01/17/17 06:07 George Alexis M.D. Jan 17, 2017 17:35
[2017-01-17 20:00] VITALS: BP 135/72
--- NOTE | 2017-01-17 20:35 | General Progress Note ---
Assessment/Plan Problem List: (1) ACS (acute coronary syndrome) ICD Codes: I24.9 - Acute ischemic heart disease, unspecified SNOMED: 201412821 Status: progressing Assessment/Plan afebrile vitals stable acs no chest pain dc in am s/p stress text non ishcemic needs for rn monitering Subjective Constitutional: Reports: no symptoms Allergies: Coded Allergies: NO KNOWN ALLERGIES (Unverified Allergy, Unknown, 01/14/17) Objective Last 24 Hour Vital Signs Date Time Temp Pulse Resp B/P (MAP) Pulse Ox O2 Delivery O2 Flow Rate FiO2 01/17/17 20:00 97.0 67 16 135/72 96 Room Air 01/17/17 16:00 97.0 70 20 140/86 97 Room Air 01/17/17 16:00 71 01/17/17 12:00 71 01/17/17 12:00 97.0 70 20 154/72 95 Room Air 01/17/17 09:11 143/77 01/17/17 08:00 68 01/17/17 08:00 97.5 76 21 143/77 96 Room Air 01/17/17 04:00 62 01/17/17 03:58 98.8 76 18 130/69 95 Room Air 01/17/17 00:00 71 01/16/17 23:54 98.3 73 19 149/74 98 Room Air Intake and Output 01/17/17 01/18/17 19:00 07:00 Intake Total 500 ml Balance 500 ml Intake Oral 500 ml # Voids 2 # Bowel Movements 2 Laboratory Tests 01/17/17 09:14: Stool Occult Blood Negative Height (Feet): 5 Height (Inches): 6.00 Weight (Pounds): 230 Respiratory/Chest: lungs clear Abdomen: soft Benito Padgett MD Jan 17, 2017 20:35
[2017-01-18] VITALS: BP 115/66
--- NOTE | 2017-01-18 02:15 | Consultation ---
DATE OF CONSULTATION: INFECTIOUS DISEASES CONSULTATION REQUESTING PHYSICIAN: Benito Padgett M.D. REASON FOR CONSULTATION: Leukocytosis, rule out infectious etiology. History Of Present Illness: The patient is an 81-year-old female with past medical history of coronary artery disease, MA, and hypertension, who was brought into [facility] emergency room for chest pain. Before her arrival to home started at rest, she was given aspirin and nitroglycerin with some improvement. She felt dizzy after that. The patient had well-known history of coronary artery disease and hypertension, so she was brought in for evaluation and to rule out myocardial infarction. The patient had cardiac workup in progress since admission including stress test. Today, she was found to have leukocytosis with white count more than 12,000. So, I was consulted by Dr. Padgett to rule out infectious etiology of her leukocytosis. She denied any cough or shortness of breath. No diarrhea. No urinary symptoms at this point. Past Medical History: Significant for hypertension, MA and coronary artery disease. PAST SURGICAL HISTORY: Negative. Medications: She is on Avapro, Colace, Dulcolax, milk of magnesium, Lipitor, aspirin, Synthroid, Glucophage, Januvia, nitroglycerin, and Tylenol. ALLERGIES: No known drug allergy. Social History: Elderly female. Lives with family. Denied using any drugs, tobacco, or alcohol. FAMILY HISTORY: Not contributory. Review of Systems: Fourteen point of system reviewed were all negative apart from the one I mentioned above in my History And Physical. PHYSICAL EXAMINATION: General: An elderly female, lying in bed, awake, alert, not in distress. Vital Signs: Temperature 97 degrees, pulse 70, respirations 20, blood pressure 140/86, and saturation 97% on room air. HEENT: Normocephalic and atraumatic. Pupils reactive to light equally. Moist oral mucosa. No exudate or thrush. NECK: Supple. No lymphadenopathy. CARDIOVASCULAR: Regular rate and rhythm. No murmur or gallop. Lungs: Clear bilaterally. No wheezing or rhonchi. Normal breathing effort. Abdomen: Soft, nontender, and nondistended. Positive bowel sounds. No hepatosplenomegaly. EXTREMITIES: No edema. No cyanosis. SKIN: No rash or hives. Laboratory And Diagnostic Data: Laboratory today showed white count of 12.2, hemoglobin of 12.9, and platelet count of 202,000. BUN of 15 and creatinine of 1.3. Imaging, chest x-ray on 01/14/2017 showed no acute process. Head CT scan showed chronic and age-related changes. Negative for acute intracranial bleeding or mass effect. ASSESSMENT AND RECOMMENDATION: 1. Leukocytosis, rule out sepsis or urinary tract infection. We will send blood for culture and urinalysis. We will monitor WBC. Keep off antibiotics for now. 2. Acute coronary syndrome, rule out myocardial infarction. Workup in progress. Cardiology is following. Continue inclusion teacher. George Alexis M.D. DR: KOLE JOB#: [id number] CC:
[2017-01-18 04:00] VITALS: BP 144/61
[2017-01-18] MEDS: metFORMIN 500mg tab ORAL SCH (06:40)
[2017-01-18 08:15] VITALS: BP 124/75
[2017-01-18] MEDS ORDERED: Irbesartan 150mg tablet ORAL SCH (09:00)
[2017-01-18 09:11] LABS: APPEARANCE,URINE SLIGHTLY CLOUDY; KETONES,URINE NEGATIVE (NEGATIVE); LEUKOCYTE ESTERASE ,URINE NEGATIVE (NEGATIVE); NITRITE,URINE NEGATIVE (NEGATIVE); PH,URINE 5 (4.5-8.0); PROTEIN,URINE NEGATIVE (NEGATIVE); UROBILINOGEN,URINE NORMAL MG/DL (0.0-1.0)
[2017-01-18 09:17] LABS: BACTERIA,URINE FEW /HPF; RBC,URINE 0-2 /HPF (0 - 2); SQUAMOUS EPITHELIAL CELL,UR FEW /LPF (NONE/OCC); WBC,URINE 0-2 /HPF (0 - 2)
--- NOTE | 2017-01-21 08:38 | Discharge Summary ---
Discharge Summary Hospital Course Date of Admission Jan 14, 2017 at 12:40 Date of Discharge Jan 18, 2017 at 08:45 Admitting Diagnosis CHEST PAIN HPI Ivelisse Arreola is a 81 year old female who was admitted on Jan 14, 2017 at 12:40 for Chest Pain Hospital Course dc summary #[id number] Discharge Medications Continued Medications: Aspirin Ec* (Aspirin Ec*) 81 Mg Tablet.dr 81 MG ORAL DAILY, TAB Clopidogrel* (Clopidogrel*) 75 Mg Tablet 75 MG ORAL DAILY, TAB Furosemide* (Lasix*) 40 Mg Tablet 40 MG ORAL DAILY, TAB Levothyroxine Sodium* (Levothyroxine Sodium*) 88 Mcg Tablet 88 MCG ORAL DAILY, TAB Take in the morning on an empty stomach, at least 30 minutes before food. Metformin Hcl* (Metformin Hcl*) 500 Mg Tablet 500 MG ORAL TWICE A DAY, TAB Metoprolol Tartrate* (Metoprolol Tartrate*) 25 Mg Tablet Unknown Dose ORAL DAILY, TAB Sitagliptin (Januvia) 100 Mg Tab 100 MG ORAL DAILY, TAB Valsartan (Diovan) 40 Mg Tab 40 MG ORAL DAILY, TAB Discharge Condition Upon Discharge: stable Discharge Disposition Patient was discharged to Home (01) Discharge Diagnoses: Discharge Instructions Discharge Instructions Special Instructions I have been assigned to complete a D/C Summary on this account. I was not involved in the patient management Cristiana aHll NP (Vanchtein) Jan 21, 2017 08:38
--- NOTE | 2017-01-22 03:45 | Discharge Summary 2 SIG ---
DATE OF ADMISSION: 01/14/2017 DATE OF DISCHARGE: 01/18/2017 Reason For Admission: 81-year-old female with a history of hypertension, diabetes, and coronary artery disease with percutaneous coronary intervention in 2009, due to the myocardial infarction, presented from home with a complaint of chest pain. Chest pain started about 30 minutes prior to paramedics arrival at home. Chest pain started at rest. Patient was given aspirin and nitroglycerin by paramedics. Upon arrival, patient denied any chest pain. She felt dizzy. She denied smoking. First troponin was negative. EKG showed normal sinus rhythm. No acute ischemic changes. Chest x-ray was unremarkable. 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 The patient was admitted to telemetry floor to rule out acute coronary syndrome. ADMITTING DIAGNOSES: 1. Chest pain, 2. Rule out acute coronary syndrome. 3. Hypertension. 4. Coronary artery disease status, post percutaneous coronary intervention in 2009. 5. History of myocardial infarction. Hospital Stay: The patient was admitted to telemetry floor. Serial troponin were negative. Cardiology consult was requested. 12-lead EKG showed old inferior and lateral wall infarct. No acute ischemic changes. The patient was continued on aspirin. No double protection needed as per private inquiry agent since the stents were placed long time ago, in 2009. The patient was on beta-ellen. Blood pressure was controlled with beta-ellen and Diovan. Echocardiogram revealed preserved ejection fraction of 55% to 60% and right ventricular systolic pressure of 16. Chest x-ray was negative for any acute cardiopulmonary disease. Supplemental oxygen was provided as needed to keep pulse oximetry above 92%. Pulse oximetry was stable on room air; no need for supplemental oxygen. Java Developer Architect closely followed. Due to the multiple risk factors and prior history of myocardial infarction and coronary artery disease with stenting, nuclear stress test was ordered. Nuclear stress test revealed large fixed inferolateral perfusion defect consistent with old large infarct. No evidence of ischemia at level of stress achieved. Post ejection fraction calculated was 50% with evidence of inferolateral hypokinesis. Chest pain resolved. Blood pressure was stable. Chest pain was noncardiac, possibly of musculoskeletal origin, possible GERD. Blood sugar was managed with existing regimen and was stable. The patient was noted to have mild anemia. Initially on presentation, hemoglobin- 11.3 and hematocrit -34.7. Anemia workup revealed anemia of chronic disease. Hematology consult requested. Senior Systems Developer recommended to monitor counts; in two days, hemoglobin up to 12.9 and hematocrit up to 37.3. Pro BNP was - 321. Urinalysis was negative. Stool for OB was negative. The patient was noted to have on 01/16/2017 mild leukocytosis -12.2. Urinalysis was checked and was negative. Chest x-ray was negative. Blood cultures were were negative. All consultants cleared the patient for discharge home and follow up with the primary medical doctor. FINAL DIAGNOSES: 1. Chest pain, noncardiac, possibly of musculoskeletal origin 2. Hypertension. 3. Diabetes. 4. Coronary artery disease status post percutaneous coronary intervention in 2009. 5. Anemia of chronic disease. DISCHARGE MEDICATIONS: See medication reconciliation list. Discharge Instructions: The patient is discharged home. Follow up with primary medical doctor. Benito Padgett M.D. I have been assigned to dictate discharge summary on this account and I was not involved in the patient's management. Cristiana Hall ([facility]) N.PAngie DR: JSOE CRUZ JOB#: [id number] CC: BRYNN
== END 2017-01-18 08:45 | disposition home or self-care (01) | DRG 313 ==
LOC: EDBD 11:52 → EMR 12:35 → 2E 12:40 → EDBEDREQ 12:48
DX: R07.89 Other chest pain (principal); I25.2 Old myocardial infarction; E86.0 Dehydration; E11.9 Type 2 diabetes mellitus without complications; D63.8 Anemia in other chronic diseases classified elsewhere; I10 Essential (primary) hypertension; E03.9 Hypothyroidism, unspecified; I25.10 Atherosclerotic heart disease of native coronary artery without angina pectoris; Z79.02 Long term (current) use of antithrombotics/antiplatelets; Z95.5 Presence of coronary angioplasty implant and graft; R42 Dizziness and giddiness
CPT/HCPCS: 36415; 70450; 71010; 78452; 80053; 80061; 81001; 82270; 82550; 82553; 82607; 82728; 82746; 82962; 83090; 83540; 83550; 83615; 83880; 84443; 84484; 85007; 85025; 85044; 85060; 87040; 93005; 93017; 93306; 99285